=== PATIENT | female | born 1985 | race Caucasian/White ===

== ENCOUNTER 2017-05-06 13:45 | Emergency (ER) | payer OTHER ==
[2017-05-06 13:45] VITALS: BMI 31.6
[2017-05-06 14:21] VITALS: RESP 18
--- NOTE | 2017-05-06 14:49 | C.PDOC ---
History Of Present Illness 32 yo female 30 wks , come in for evaluation of rectal pain gradually developed fora pst month. pt admits, previous hx of hemorrhoids " worsen with progression of ". Otherwise, pt denies fever, chills, abd. pain, V/D, denies rectal bleeding. Pt admits, was using some medication for hemorrhoids given by OB without significant improvement. Ambulate to Ed for evaluation, appears in painful discomfort. Time Seen by Provider: 05/06/17 14:23 Chief Complaint (Nursing): GI Problem History Per: Patient Onset/Duration Of Symptoms: Gradual Past Medical History Reviewed: Historical Data, Nursing Documentation, Vital Signs Vital Signs: Last Vital Signs Temp 97.9 F 05/06/17 14:19 Pulse 96 H 05/06/17 14:19 Resp 18 05/06/17 14:19 BP 105/72 05/06/17 14:19 Pulse Ox 97 05/06/17 14:49 - Medical History PMH: No Chronic Diseases Surgical History: Appendectomy - [facility] MONITORING NOS (06/27/14) REPAIR OB LACERATION NEC (06/27/14) Family History: States: No Known Family Hx - Social History Hx Alcohol Use: No Hx Substance Use: No Review Of Systems Except As Marked, All Systems Reviewed And Found Negative. Constitutional: Negative for: Fever, Chills ENT: Negative for: Throat Pain Cardiovascular: Negative for: Chest Pain Respiratory: Negative for: Cough, Shortness of Breath Gastrointestinal: Positive for: Rectal Pain. Negative for: Vomiting, Abdominal Pain, Diarrhea Genitourinary: Negative for: Dysuria, Incontinence Musculoskeletal: Negative for: Neck Pain, Back Pain Skin: Negative for: Rash Neurological: Negative for: Weakness, Numbness, Altered Mental Status, Dizziness Physical Exam - Physical Exam Appears: Well, Non-toxic, No Acute Distress Skin: Normal Color, Warm, Dry, No Rash Head: Normacephalic Eye(s): bilateral: PERRL Throat: No Erythema Neck: Trachea Midline, Supple Cardiovascular: Rhythm Regular Respiratory: No Decreased Breath Sounds, No Accessory Muscle Use, No Stridor, No Wheezing Gastrointestinal/Abdominal: Soft, Other (Gravid) Rectal: Rectal Tone (normal), Heme Negative, Hemorrhoids (small external, tender , non-thrombosed) Back: No CVA Tenderness Extremity: Normal ROM, No Pedal Edema, No Deformity Neurological/Psych: Oriented x3, Normal Speech ED Course And Treatment O2 Sat by Pulse Oximetry: 97 Progress Note: On re-evaluation,p t is afebrile, hemodynamicaly stable. Non- toxic. Abd: gravid. Rectla: edam c/w small external non-thrombosed hemorrhoids , no rectal bleeding. Pt advised. ref. to f/u with OB, Surgery in 2-3 days for re-eavl. return if any new changes. Disposition - Disposition Disposition: HOME/ ROUTINE Disposition Time: 15:02 Condition: STABLE Prescriptions: Dibucaine 1 gm TP TID #1 tub Hydrocortisone 2.5% (Rectal) [Anusol-HC] 30 applic SC BID #1 tube Instructions: Rectal Pain (ED), Hemorrhoids (ED) Forms: [facility] ([place]ian) - Clinical Impression Clinical Impression: External hemorrhoid,
[2017-05-06 15:35] VITALS: BP 110/64; PULSE 84; TEMP 98.1; O2SAT 99
== END 2017-05-06 15:35 | disposition home or self-care (01) ==
LOC: C.ER 13:45
DX: O22.43 Hemorrhoids in pregnancy, third trimester (principal); Z3A.30 30 weeks gestation of pregnancy